=== PATIENT | male | born 1960 | race Caucasian/White ===

== ENCOUNTER 2016-12-19 15:10 | Emergency (ER) | payer SELFPAY ==
[~2016-12-19] VITALS: Ht 175.3 cm; Wt 75.5 kg
[2016-12-19 15:30] VITALS: Ht 175.3 cm; Wt 75.5 kg
[2016-12-19] MEDS ORDERED: KETOROLAC 30 MG INJ IM STA (16:25)
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
== END 2016-12-19 17:33 | disposition home or self-care (01) ==
LOC: FTE 15:10
DX: M54.2 Cervicalgia (principal)
CPT/HCPCS: 72040; J1885; 96372